=== PATIENT | male | born 1955 | race Caucasian/White ===

== ENCOUNTER 2021-11-18 07:52 | Inpatient (IN) ==
--- NOTE | 2021-11-15 12:26 | Anesthesiology Consultation ---
Date of Service November 15, 2021 Assessment & Plan (1) Encounter for pre-operative examination: - COVID screening: Per assessment on 11/15: No known COVID-19 positive contacts or current COVID-19 related symptoms. Travel screen negative. Patient vaccinate d. Surgeon arranging preop COVID testing. Awaiting results. - Check BSG AM DOS Chart Review Chart Review: Acceptable Risk for Surgery and Patient NOT seen in Pre Admission Testing History Surgery Operation Date: 11/18/21 09:35 Proposed Procedures p L3-L5 Decompression and Fusion Spinal Cord Monitoring - Emre Kaba DO Height/Weight Height: 5 ft 8 in Weight: 68.039 kg Allergies Allergy/AdvReac Type Severity Reaction Status Date / Time No Known Allergies Allergy Verified 11/15/21 09:22 Medications Home Medications Medication Instructions Recorded Confirmed Last Taken aspirin 81 mg capsule 81 mg PO HS 11/15/21 11/15/21 Unknown atorvastatin 40 mg tablet 40 mg PO HS 11/15/21 11/15/21 Unknown carbamazepine 100 mg 100 mg PO UD 11/15/21 11/15/21 Unknown tablet,extended release,12 hr (Tegretol XR) carbamazepine 200 mg 200 mg PO UD 11/15/21 11/15/21 Unknown tablet,extended release,12 hr (Tegretol XR) carbamazepine 400 mg 400 mg PO UD 11/15/21 11/15/21 Unknown tablet,extended release,12 hr (Tegretol XR) empagliflozin 10 mg tablet 10 mg PO QAM 11/15/21 11/15/21 Unknown (Jardiance) metformin 500 mg tablet 1,000 mg PO UD 11/15/21 11/15/21 Unknown multivitamin 1 tab PO QAM 11/15/21 11/15/21 Unknown phenobarbital 64.8 mg tablet 64.8 mg PO BID 11/15/21 11/15/21 Unknown phenytoin sodium extended 100 mg 100 mg PO UD 11/15/21 11/15/21 Unknown capsule (Dilantin Extended) semaglutide (Ozempic) 0.25 mg SUBCUT WK 11/15/21 11/15/21 Unknown tamsulosin 0.4 mg capsule 0.4 mg PO HS 11/15/21 11/15/21 Unknown Past Medical History Medical History Chronic back pain Degenerative disc disease Diabetes mellitus, type 2 NIDDM Hyperlipidemia OCD (obsessive compulsive disorder) Osteoarthritis Seizure last seizure over 25-30 years. 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 Follows with PCP currently. Past Family History Family History Other No family history of adverse response to anesthesia Past Surgical History Surgical History H/O arthroscopy of left knee H/O arthroscopy of right knee History of colonoscopy S/P epidural steroid injection Social History Smoking Status: Never smoker tobacco type: smokeless tobacco Do You Dip or Chew Tobacco: No (quit years ago) Hx Alcohol Use: No Hx Substance Use: No substance use type: does not use Testing Laboratory Results 09/27/21 WBC 5.39 H/H 15.0/44.5 PLATELETS 265 SODIUM 133 POTASSIUM 4.4 CHLORIDE 101 CO2 27.9 BUN 22.7 CREATININE 0.77 GLUCOSE 131 PT 11.2 PTT 31.2 INR 0.99 UA negative leuk est/nitrite Electrocardiogram Date: 09/27/21 Sinus rhythm at 79 bpm. Abnormal LAD. Chest X-Ray Date: 09/27/21 Findings: + NAD
[~2021-11-18 07:52] MED LIST: ACETAMINOPHEN 500 MG TAB PO SCH; CeleBREX 200 MG CAP PO SCH; GABAPENTIN 300 MG CAP PO SCH; LR 15ML/HR IV SCH; ceFAZolin 2000MG 2,000 MG/15 ML SYR IV SCH
[2021-11-18] MEDS ORDERED: LIDOCAINE 2% 2 ML VIAL/AMP(20MG/ML) INFIL ONE (08:16)
[2021-11-18] MEDS ORDERED: ROCURONIUM BROMIDE 10 MG/ML 5 ML VIAL IV ONE (08:16)
[2021-11-18] MEDS ORDERED: MIDAZOLAM HCL 1 MG/ML 2ML VIAL ONE (08:16)
[2021-11-18] MEDS ORDERED: NEOSTIGMINE METHYLSULFATE 1 MG/ML 10ML VIAL ONE (08:16)
[2021-11-18] MEDS ORDERED: ONDANSETRON INJ 2 MG/ML 2 ML VIAL ONE (08:16)
[2021-11-18] MEDS ORDERED: PROPOFOL IV EMULSION 10 MG/ML 20 ML VIAL IV ONE (08:16)
[2021-11-18] MEDS ORDERED: DEXAMETHASONE SOD INJ 4 MG/ML VIAL ONE (08:16)
[2021-11-18] MEDS ORDERED: GLYCOPYRROLATE 0.2 MG/ML VIAL ONE (08:16)
[2021-11-18] MEDS ORDERED: fentaNYL citrate 100 MCG/2 ML VIAL ONE (08:16)
--- NOTE | 2021-11-18 09:10 | History & Physical Bridge Note ---
Date of Service November 18, 2021 History & Physical Bridge Note I have examined the patient, reviewed the History & Physical and in the interval since the performance of the History & Physical I have noted the following changes of clinical significance: no changes noted
[2021-11-18] MEDS ORDERED: PROMETHAZINE HCL 12.5 MG in SODIUM CHLORIDE 0.9% 50 ML IV PRN ×2 (09:11→15:07)
[2021-11-18] MEDS ORDERED: HYDROmorphone INJ 1 MG/ML SYRINGE IV PRN (09:11)
[2021-11-18] MEDS ORDERED: ATROPINE SULFATE 0.1 MG/ML 10ML SYR IV PRN (09:11)
[2021-11-18] MEDS ORDERED: FLUMAZENIL 0.1 MG/1 ML 10 ML VIAL IV PRN (09:11)
[2021-11-18] MEDS ORDERED: ePHEDrine sulfate 50 MG/ML AMP IV PRN (09:11)
[2021-11-18] MEDS ORDERED: LABETALOL HCL IV 5 MG/ML 20ML IV PRN (09:11)
[2021-11-18] MEDS ORDERED: NALOXONE HCL 0.4 MG/1 ML VIAL/CARP IV PRN ×2 (09:11→15:07)
[2021-11-18] MEDS ORDERED: ONDANSETRON INJ 2 MG/ML 2 ML VIAL IV PRN ×2 (09:11→15:07)
--- NOTE | 2021-11-18 09:11 | History & Physical Report ---
Date of Service November 18, 2021 Assessment & Plan (1) Neurogenic claudication due to lumbar spinal stenosis: Plan: L3-L5 decompression and fusion History of Present Illness Chief Complaint: Back and bilateral leg pain Primary Care Provider: Jenny Snyder DO This is a 66-year-old male presents with marked decline in status with pain and weakness. After failing 6 course of nonoperative care is here for surgical intervention. Allergies Allergy/AdvReac Type Severity Reaction Status Date / Time No Known Allergies Allergy Verified 11/18/21 08:18 Home Medications Medication Instructions Recorded Confirmed Type aspirin 81 mg capsule 81 mg PO HS 11/15/21 11/18/21 History atorvastatin 40 mg tablet 40 mg PO HS 11/15/21 11/18/21 History carbamazepine 100 mg 100 mg PO UD 11/15/21 11/18/21 History tablet,extended release,12 hr (Tegretol XR) carbamazepine 200 mg 200 mg PO UD 11/15/21 11/18/21 History tablet,extended release,12 hr (Tegretol XR) carbamazepine 400 mg 400 mg PO UD 11/15/21 11/18/21 History tablet,extended release,12 hr (Tegretol XR) empagliflozin 10 mg tablet 10 mg PO QAM 11/15/21 11/18/21 History (Jardiance) metformin 500 mg tablet 1,000 mg PO UD 11/15/21 11/18/21 History multivitamin 1 tab PO QAM 11/15/21 11/18/21 History phenobarbital 64.8 mg tablet 64.8 mg PO BID 11/15/21 11/18/21 History phenytoin sodium extended 100 mg 100 mg PO UD 11/15/21 11/18/21 History capsule (Dilantin Extended) semaglutide (Ozempic) 0.25 mg SUBCUT WK 11/15/21 11/18/21 History tamsulosin 0.4 mg capsule 0.4 mg PO HS 11/15/21 11/18/21 History Past Med/Surg History Medical History Chronic back pain Degenerative disc disease Diabetes mellitus, type 2 NIDDM Hyperlipidemia OCD (obsessive compulsive disorder) Osteoarthritis Seizure last seizure over 25-30 years. 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 Follows with PCP currently. Surgical History H/O arthroscopy of left knee H/O arthroscopy of right knee History of colonoscopy S/P epidural steroid injection Family History Other No family history of adverse response to anesthesia Social History Smoking Status: Never smoker Second Hand Exposure: No; Do You Dip or Chew Tobacco: No (quit years ago); Tobacco Cessation Education Requested by Patient: No Hx Alcohol Use: No Hx Substance Use: No Preferred Language: Northern Irish Communication Ability: Effective Carton Catcher Required: No Beliefs That Will Affect Care: None Current Living Situation: Spouse Other Information That Helps Us Care for You: No Assistive Devices: Cane, Denture - Upper, Denture - Lower and Glasses Physical Exam Physical Exam: Patient is alert and oriented Heart regular rhythm Lungs clear Results & Data ([facility]) Vital Signs (Past 12 Hours) Vital Signs Temp Pulse Resp BP Pulse Ox 11/18/21 08:31 36.6 C 75 18 136/77 96
[2021-11-18] MEDS ORDERED: ceFAZolin 330 MG/ML 1 GM VIAL ONE (09:29)
[2021-11-18] MEDS ORDERED: BUPIVACAINE 0.5 % 5 MG/1 ML MPF 30ML VIAL ONE (09:32)
[2021-11-18] MEDS ORDERED: EPINEPHrine INJ 1 MG/ML AMP ONE (09:33)
[2021-11-18] MEDS ORDERED: FLOSEAL HEMOSTATIC MATRIX 10ML TOP ONE (10:24)
--- NOTE | 2021-11-18 11:51 | Operative Report ---
Post Operative Report Pre & Post Diagnosis Operation Date: 11/18/21 09:45 Pre-Op Diagnosis: Neurogenic claudication due to lumbar spinal stenosis, L3-L5 Post-Op Diagnosis: Neurogenic claudication due to lumbar spinal stenosis, L3-L5 I identified the patient and participated in the time-out.: Yes Procedure Operation Date: 11/18/21 09:45 Actual Procedures #1 lumbar decompression with bilateral medial facetectomies and foraminotomies L2-L3, L3-L4 and L4-5. #2 posterior spinal fusion L3-L4 L4-5. #3 placement posterior instrumentation L3-L5. #4 interbody fusion L3-L4 L4-L5. #5 placement of Spira 14 x 26 mm at L3-L4 and L4-5. #6 placement of locally harvested morselized autograft in the posterior gutters. #7 placement of I factor combined with V toss in the interbody space and posterior lateral gutters. Surgeon Emre Kaba, DO [employer]er Flor Sinclair Estimated Blood Loss 450 Findings Consistent with Post-Op Diagnosis Specimens None Indications This is a 66-year-old male that presents with above-mentioned diagnosis after failed course of nonoperative care is here for surgical invention. Description of Procedure Patient was met with identified informed consent obtained. Patient was then taken to the operative suite underwent a patient placed in a prone position the Clarence table top Nakul frame. All bony prominences well-padded eyes inspected to ensure no external pressure placed upon the. This point the lumbar spine was prepped and draped in the normal sterile fashion. Sharp dissection with the assistance of Bovie cautery was then performed down to and exposing the lamina and transverse processes of L3-L4-L5 bilaterally. From a caudal to cephalad fa shion complete laminectomy of all 4 L3 and partial laminectomy of L2 was performed including bilateral medial facetectomies foraminotomies addressing severe spinal stenosis. Pedicle screws were then placed in L3-L4-L5 bilaterally with assistance of fluoroscopy and the proper sized florina placed. By way of a transforaminal approach on the right complete discectomy of L4-L5 was performed endplates curetted to subcortical bleeding bone and a 14 x 26 mm spiral cage filled I factor tapped in position. Then proceeded to L3-L4 and again by way of a transforaminal portion right complete discectomy performed endplates graded to subcortically bone and again a 14 x 26 mm spiral cage filled I factor tapped in position. The rods were then compressed locked in final position bilaterally. The transverse processes of L3 L4-5 burred to subcortical bleeding bone. I factor combined with V toss and locally harvested morselized autograft was placed in the posterior gutters. 15 round LAUREN drain inserted. The incision was then closed with 1 Vicryl the fascia 2-0 Vicryl subcutaneously and 4 Monocryl for final skin closure. Steri-Strip sterile dressings placed. Patient waken taken PACU stable condition. Please note spinal cord monitoring was utilized at the procedure no changes noted. Lastly Flor Sinclair was present out the entire surgery and while the patient positioning complex portions of the surgery and fascial closure. I attest to the content of the Intraoperative Record and any orders documented therein. Any exceptions are noted below.
[2021-11-18] MEDS: fentaNYL citrate 100 MCG/2 ML VIAL IV PRN ×4 (12:15→12:30)
--- NOTE | 2021-11-18 12:38 | Fluoroscopy Report ---
FL lumbar spine 2-3V HISTORY: 66 years-old Male L3-L5 DECOMP/FUSION COMPARISON: None TECHNIQUE: 2 spot fluoroscopic images of the lumbar spine were obtained utilizing 30.4 seconds fluoro scopy time FINDINGS: Posterior interbody florina and screw fusion with discectomy at L3-L5. The hardware appears intact. No un expected opaque foreign bodies. Multilevel spondylitic spurring. Alignment appears satisfactory. IMPRESSION: Fluoroscopic assistance as above. ACT 112: Negative or not required by law. The above report was generated using voice recognition software. It may contain grammatical, syntax o r spelling errors. Electronically signed by: Navarro Arevalo M.D. 11/18/2021 12:36 PM
--- NOTE | 2021-11-18 12:56 | Anesthesiology Progress Note ---
Date of Service November 18, 2021 Anesthesia Post Procedure Vital Signs Vital Signs: Temp Pulse Resp BP Pulse Ox 11/18/21 12:40 36.2 C L 80 18 121/65 98 11/18/21 12:30 76 17 125/61 99 11/18/21 12:20 77 17 124/50 L 100 11/18/21 12:10 89 17 124/66 100 11/18/21 12:04 36.2 C L 85 18 138/67 96 11/18/21 08:31 36.6 C 75 18 136/77 96 Transfer of Care Handoff Completed per policy Notes Mental Status: alert / awake / arousable Patient Amnestic to Procedure: Yes Nausea / Vomiting: adequately controlled Pain: adequately controlled Airway Patency, RR, SpO2: stable & adequate BP & HR: stable & adequate Hydration State: stable & adequate Anesthetic Complications: no major complications apparent
[2021-11-18] MEDS ORDERED: oxyCODONE HCL IR 5 MG TAB (IMMEDIATE RELEASE) PO PRN (15:07)
[2021-11-18] MEDS ORDERED: ONDANSETRON 4 MG OD TAB PO PRN (15:07)
[2021-11-18] MEDS ORDERED: bisacodyL 10 MG SUPP PR PRN (15:07)
[2021-11-18] MEDS ORDERED: DO NOT ADMINISTER PNEUMOCOCCAL VACCINE PRN (15:07)
[2021-11-18] MEDS ORDERED: DO NOT ADMINISTER FLU VACCINE PRN (15:07)
[2021-11-18] MEDS ORDERED: LORazepam 0.5 MG TAB PO PRN (15:07)
[2021-11-18] MEDS ORDERED: PHARMACY GLYCEMIC MGMT CONSULT PRN (15:07)
[2021-11-18] MEDS ORDERED: hydrOXYzine HCl 25 MG TAB PO PRN (15:07)
[2021-11-18] MEDS ORDERED: ACETAMINOPHEN 1,000 MG/100 ML VIAL IV PRN (15:07)
[2021-11-18] MEDS ORDERED: SOD PHOSPHATE/SOD BIPHOSPHATE ENEMA 132 ML BTL PR PRN (15:07)
[2021-11-18] MEDS ORDERED: ALUMINUM/MAGNESIUM SUSP 30 ML UDC PO PRN (15:07)
[2021-11-18] MEDS ORDERED: FAMOTIDINE 20 MG TAB PO PRN (15:07)
[2021-11-18] MEDS ORDERED: MAGNESIUM HYDROXIDE SUSP 30 ML UDC PO PRN (15:07)
[2021-11-18] MEDS ORDERED: diphenhydrAMINE Capsule 25 MG CAP PO PRN (15:07)
[2021-11-18] MEDS ORDERED: LORazepam 2 MG/1 ML VIAL IV PRN (15:07)
[2021-11-18] MEDS ORDERED: PHENYTOIN SODIUM ER 100 MG CAP PO SCH ×2 (15:07→21:00)
[2021-11-18] MEDS ORDERED: METOCLOPRAMIDE HCL INJ 5 MG/ML 2 ML VIAL IV PRN (15:07)
[2021-11-18] MEDS ORDERED: NON-FORMULARY MEDICATION (Semaglutide [Ozempic] 0.25 mg or 0.5 mg(2 mg/1.5 mL) Pen Injecto SQ SCH (15:07)
[2021-11-18] MEDS ORDERED: HYDROmorphone INJ 0.5 MG/0.5 ML SYR IV PRN (15:07)
[2021-11-18] MEDS ORDERED: PHENYTOIN SODIUM ER 100 MG CAP PO STA (15:49)
--- NOTE | 2021-11-18 16:03 | Hospitalist Consultation ---
Date of Consultation November 18, 2021 Assessment & Plan (1) Neurogenic claudication due to lumbar spinal stenosis: POD#0 L3-L5 decompression and fusion by Dr. Kaba activity and wound care orders as per ortho pain control with bowel regimen PT/OT monitor H/H for acute blood loss anemia and transfuse blood products PRN EBL 450 cc (2) Diabetes mellitus, type 2: Unknown HgbA1c, check with a.m. labs Hold home diabetic meds and utilize Lantus and NovoLog per protocol while hospitalized Glycemic pharmacy consulted by primary team (3) Seizure: History of Continue home doses of carbamazepine, phenobarbital, Dilantin (4) DVT prophylaxis: TEDs/SCDs as per spine Ortho Thank you for this consultation. We will follow the patient with you during their hospital stay. You can reach a member of the [facility]02 via the [facility] role in [place] Text. Supervising Physician Co-Signing Physician Notes Patient is a 66-year-old male with history of diabetes mellitus, hypertension, seizure disorder was consulted for postop medical management. Patient underwent lumbar surgery for lumbar spinal stenosis L3-L5 with neurogenic claudication. Patient complains of some pain at surgical site but otherwise feels well postoperatively. He denies any chest pain, shortness of breath, dizziness, nausea, abdominal pain. Physical Exam: Vitals signs as noted above General Appearance:Moderately built and nourished, no apparent distress Head: normocephalic, Atraumatic Eyes: normal inspection, EOMI Neck: supple, Trachea midline Respiratory/Chest: Normal breath sounds, CTA, No accessory muscle use Cardiovascular: S1, S2, No murmur Abdomen/GI:Soft, Non tender, Bowel sounds present Back: Surgical site in dressing Extremities/Musculoskeletal:normal inspection, no edema Neurologic/Psych:AAOX3, grossly no focal neurological deficits Skin: normal color, warm Neurogenic claudication due to lumbar spinal stenosis S/P lumbar surgery by Dr. Kaba POD #0 Pain control, activity, wound care as per primary team Monitor for post OP anemia Bowel regimen to prevent constipation DVT Px as per Primary team Expect leukocytosis in setting of steroid use I personally reviewed the record. Patient is interviewed and examined at bedside. Patient's care is coordinated with Nadya Houston ASSISTANT PROFESSOR OF ENGLISH. Please refer to the documentation above for details of patient's presentation and for discussion of other issues. History of Present Illness Reason for Consultation: Postop medical management Requesting Physician: Dr. Kaba Attending Physician: Emre Kaba, DO History of Present Illness 66-year-old male with PMH seizure disorder, DM type II, HLD, and other problems to below who is s/p L3-L5 decompression and fusion today by Dr. Kaba. Postoperatively, the patient is doing well. He reports his pain is well controlled. Denies any numbness, tingling, weakness to lower extremities. No chest pain or shortness of breath. Denies abdominal pain or nausea. No lightheadedness or dizziness. Allergies Allergy/AdvReac Type Severity Reaction Status Date / Time No Known Allergies Allergy Verified 11/18/21 08:18 Home Medications Medication Instructions Recorded Confirmed Type aspirin 81 mg capsule 81 mg PO HS 11/15/21 11/18/21 History atorvastatin 40 mg tablet 40 mg PO HS 11/15/21 11/18/21 History carbamazepine 100 mg 100 mg PO UD 11/15/21 11/18/21 History tablet,extended release,12 hr (Tegretol XR) carbamazepine 200 mg 200 mg PO UD 11/15/21 11/18/21 History tablet,extended release,12 hr (Tegretol XR) carbamazepine 400 mg 400 mg PO UD 11/15/21 11/18/21 History tablet,extended release,12 hr (Tegretol XR) empagliflozin 10 mg tablet 10 mg PO QAM 11/15/21 11/18/21 History (Jardiance) metformin 500 mg tablet 1,000 mg PO UD 11/15/21 11/18/21 History multivitamin 1 tab PO QAM 11/15/21 11/18/21 History phenobarbital 64.8 mg tablet 64.8 mg PO BID 11/15/21 11/18/21 History phenytoin sodium extended 100 mg 100 mg PO UD 11/15/21 11/18/21 History capsule (Dilantin Extended) semaglutide (Ozempic) 0.25 mg SUBCUT WK 11/15/21 11/18/21 History tamsulosin 0.4 mg capsule 0.4 mg PO HS 11/15/21 11/18/21 History Patient History Medical History Chronic back pain Degenerative disc disease Diabetes mellitus, type 2 NIDDM Hyperlipidemia OCD (obsessive compulsive disorder) Osteoarthritis Seizure last seizure over 25-30 years. 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 Follows with PCP currently. Surgical History H/O arthroscopy of left knee H/O arthroscopy of right knee History of colonoscopy S/P epidural steroid injection Family History Other No family history of adverse response to anesthesia Social History Smoking Status: Never smoker Second Hand Exposure: No; Do You Dip or Chew Tobacco: No (quit years ago); Tobacco Cessation Education Requested by Patient: No Hx Alcohol Use: No Hx Substance Use: No Preferred Language: Uzbek Communication Ability: Effective Tube Skiver Required: No Beliefs That Will Affect Care: None Current Living Situation: Spouse Other Information That Helps Us Care for You: No Assistive Devices: Cane, Denture - Upper, Denture - Lower and Glasses Review of Systems Review of Systems: ROS per HPI, all other systems reviewed and negative Physical Exam Physical Exam: please refer to Dr. Arellano's addendum for physical exam Results & Data Results & Data ([facility]) Vital Signs (Past 12 Hours) Vital Signs Temp Pulse Resp BP Pulse Ox 11/18/21 15:25 36.6 C 93 H 16 135/79 97 11/18/21 14:55 36.9 C 81 16 132/70 97 11/18/21 14:30 82 16 106/50 L 95 11/18/21 14:10 81 16 119/58 L 96 11/18/21 13:55 88 16 121/56 L 96 11/18/21 13:40 79 16 112/49 L 94 11/18/21 13:25 77 16 105/52 L 96 11/18/21 13:10 77 16 118/52 L 96 11/18/21 13:00 72 16 118/54 L 95 11/18/21 12:50 72 18 125/55 L 95 11/18/21 12:40 36.2 C L 80 18 121/65 98 11/18/21 12:30 76 17 125/61 99 11/18/21 12:20 77 17 124/50 L 100 11/18/21 12:10 89 17 124/66 100 11/18/21 12:04 36.2 C L 85 18 138/67 96 11/18/21 08:31 36.6 C 75 18 136/77 96
[2021-11-18] MEDS ORDERED: CARBOHYDRATES FOR HYPOGLYCEMIA PO PRN (16:15)
[2021-11-18] MEDS ORDERED: GLUCOSE 10 TABS/TUBE PO PRN (16:15)
[2021-11-18] MEDS ORDERED: GLUCOSE 40% GEL 15 GM TUBE PO PRN (16:15)
[2021-11-18] MEDS ORDERED: DEXTROSE 50% 50 ML SYRINGE IV PRN (16:15)
[2021-11-18] MEDS ORDERED: GLUCAGON FOR INJ 1 MG VIAL IM PRN (16:15)
[2021-11-18] MEDS: CARBAMAZEPINE 400 MG PO SCH ×2 (16:37→20:54)
[2021-11-18] MEDS: PHENYTOIN SODIUM ER 100 MG CAP PO SCH ×2 (16:37→20:57)
[2021-11-18] MEDS: SODIUM CHLORIDE 0.9% 1000ML 1,000 ML IV SCH ×2 (17:26→23:49)
[2021-11-18] MEDS: traMADol HCL 50 MG TABLET PO PRN ×2 (17:42→22:23)
[2021-11-18] MEDS: INSULIN ASPART PER UNIT SC SCH ×2 (18:29→21:01)
--- NOTE | 2021-11-18 19:18 | Pharmacy Report ---
Pharmacy Glycemic Short Note 2 - Date of Service November 18, 2021 - Glycemic Short BSG Results (Last 24 hours): 11/18/21 11/18/21 11/18/21 08:39 12:09 17:13 POC Glucose 122 H 130 H 113 H OUTPATIENT ANTIDIABETIC REGIMEN: * Jardiance 10 mg PO daily * Ozempic 0.25 mg SC weekly on Monday * Metformin 1000 mg PO BIDM * HbA1c: ordered for 11/19/21 ASSESSMENT: * APOORVA is a 66 year old male POD #0 s/p L3-5 decompression /fusion * Received 4 mg IV dexamethasone intraoperatively * Ordered dexamethasone 6 mg IV daily starting tomorrow AM * BSGs well-controlled today, 122, 130, and 113 mg/dL * Will defer basal/NPH insulin at this time and use tight Novolog parameters only for now * Patient with T2DM, managed with orals/GLP-1 RA at home, HbA1c is pending for tomorrow morning PLAN FOR INPATIENT GLYCEMIC CONTROL: * Hold outpatient oral diabetes medications * Basal insulin * Hold for now * Bolus insulin * NovoLog per scale ACHS or Q6hrs while NPO * Goal Range: Low 110 mg/dL - High 140 mg/dL * Correction Factor: 15 mg/dL/unit * Nutritional / Prandial insulin per carb ratio of 1 unit per 6 grams CHO consumed
[2021-11-18] MEDS: ASPIRIN 81 MG ECTAB PO SCH (20:51)
[2021-11-18] MEDS: ATORVASTATIN 40 MG TAB PO SCH (20:52)
[2021-11-18] MEDS: DOCUSATE SODIUM/SENNA 50/8.6MG TAB PO SCH (20:53)
[2021-11-18] MEDS: PHENOBARBITAL PO SCH (20:55)
[2021-11-18] MEDS: TAMSULOSIN HCL 0.4 MG CAP PO SCH (20:58)
[2021-11-18] MEDS ORDERED: PHENobarbitaL 30 MG TAB PO SCH (21:00)
[2021-11-18] MEDS: ceFAZolin 2000MG 2,000 MG/15 ML SYR IV SCH (22:24)
[2021-11-18] MEDS: HYDROmorphone INJ 1 MG/ML SYRINGE IV PRN (23:55)
[2021-11-19] MEDS: HYDROmorphone INJ 1 MG/ML SYRINGE IV PRN (05:00)
[2021-11-19] MEDS: SODIUM CHLORIDE 0.9% 1000ML 1,000 ML IV SCH (06:10)
[2021-11-19] MEDS: POLYETHYLENE (MIRALAX) 17 GM PACK PO SCH ×4 (06:15→23:16)
[2021-11-19] MEDS: ceFAZolin 2000MG 2,000 MG/15 ML SYR IV SCH (06:19)
[2021-11-19] MEDS: INSULIN ASPART PER UNIT SC SCH ×4 (08:33→21:29)
[2021-11-19] MEDS: MULTIVITAMIN TAB PO SCH (08:33)
[2021-11-19] MEDS: PHENYTOIN SODIUM ER 100 MG CAP PO SCH ×3 (08:34→21:31)
[2021-11-19] MEDS: dexAMETHasone 6 MG in SYRINGE 0 ML IV SCH (08:35)
[2021-11-19] MEDS: traMADol HCL 50 MG TABLET PO PRN ×4 (08:36→23:59)
[2021-11-19] MEDS: PHENOBARBITAL PO SCH ×2 (08:39→21:41)
[2021-11-19 08:44] LABS: Basophils # (auto) 0.02 K/uL (0-0.2); Basophils % (auto) 0.2 %; Eosinophils # (auto) 0.04 K/uL (0-0.5); Eosinophils % (auto) 0.3 %; Hematocrit (blood only) 36.4 % (42-52); Hemoglobin 12.6 g/dL (14.0-18.0); Immature Granulocytes # (auto) 0.04 K/uL (0.00-0.02); Immature Granulocytes % (auto) 0.3 %; Lymphocytes # (auto) 1.23 K/uL (1.2-3.4); Mean Corpuscular Hemoglobin 31.9 pg (25-34); Mean Corpuscular Hgb Conc 34.6 g/dL (32-36); Mean Corpuscular Volume 92.2 fL (80-100); Mean Platelet Volume 9.2 fL (7.4-10.4); Monocytes # (auto) 1.25 K/uL (0.11-0.59); Monocytes % (auto) 10.2 %; Neutrophils # (auto) 9.66 K/uL (1.4-6.5); Platelet Count 239 K/uL (130-400); RDW Standard Deviation 44.1 fL (36.4-46.3); Red Blood Count 3.95 M/uL (4.7-6.1); White Blood Count 12.24 K/uL (4.8-10.8)
--- NOTE | 2021-11-19 08:53 | Hospitalist Progress Note ---
Date of Service November 19, 2021 Assessment & Plan (1) Neurogenic claudication due to lumbar spinal stenosis: Plan: POD#1 L3-L5 decompression and fusion by Dr. Kaba activity and wound care orders as per ortho pain control with bowel regimen PT/OT monitor H/H for acute blood loss anemia and transfuse blood products PRN Post-op pt is doing well, RLE numbness mostly resolved Pt has been ambulating w/ PT (2) Diabetes mellitus, type 2: Plan: Current HgbA1c 5.6% Hold home diabetic meds and utilize Lantus and NovoLog per protocol while hospitalized Glycemic pharmacy consulted by primary team (3) Seizure: Plan: History of Continue home doses of carbamazepine, phenobarbital, Dilantin (4) DVT prophylaxis: Plan: TEDs/SCDs as per spine Ortho Thank you for this consultation. We will follow the patient with you during their hospital stay. You can reach a member of the [facility] Hospitalist Team 27/02 via the [facility] role in [employer] [facility]. Admission and Anticipated Discharge Date Admission Date: November 18, 2021 Subjective Patient seen in follow-up of spinal surgery Currently patient is lying in bed, in no acute distress Reports some pain in the surgical site However he says that numbness he had in the right lower extremity, is mostly all resolved He was working with PT earlier today Denies any fevers, chills, chest pain, shortness of breath, abdominal pain Has been urinating, but no BM yet Review of Systems Review of Systems: All systems reviewed & are unremarkable except as noted in Subjective Physical Exam Physical Exam: General : Moderately built and nourished, no apparent distress Head: normocephalic, Atraumatic Eyes: normal inspection, EOMI Neck: supple, Trachea midline Respiratory/Chest: Normal breath sounds, CTA, No accessory muscle use Cardiovascular: S1, S2, No murmur Abdomen/GI:Soft, Non tender, Bowel sounds present Back: Surgical dressings applied Extremities/Musculoskeletal:normal inspection, no edema Neurologic/Psych:AAOX3, grossly no focal neurological deficits Skin: normal color, warm Results & Data Results & Data ([facility]) Vital Signs (Past 12 Hours) Vital Signs Temp Pulse Resp BP Pulse Ox 11/19/21 08:32 37.3 C 85 16 120/74 97 11/19/21 06:07 37.1 C 86 18 100/63 94 11/19/21 02:07 36.9 C 80 16 113/68 98 11/18/21 22:22 37.5 C 85 18 114/69 95 Laboratory Results 11/19/21 11/19/21 11/19/21 Range/Units 08:32 08:32 08:32 WBC 12.24 H (4.8-10.8) K/uL RBC 3.95 L (4.7-6.1) M/uL Hgb 12.6 L (14.0-18.0) g/dL Hct 36.4 L (42-52) % MCV 92.2 (80-100) fL MCH 31.9 (25-34) pg MCHC 34.6 (32-36) g/dL RDW Std Deviation 44.1 (36.4-46.3) fL RDW Coeff of Anneliese 13.0 (11.5-14.5) % Plt Count 239 (130-400) K/uL MPV 9.2 (7.4-10.4) fL Immature Gran % (Auto) 0.3 % Neut % (Auto) 79.0 % Lymph % (Auto) 10.0 % [place] % (Auto) 10.2 % Eos % (Auto) 0.3 % Baso % (Auto) 0.2 % Neut # (Auto) 9.66 H (1.4-6.5) K/uL Lymph # (Auto) 1.23 (1.2-3.4) K/uL [place] # (Auto) 1.25 H (0.11-0.59) K/uL Eos # (Auto) 0.04 (0-0.5) K/uL Baso # (Auto) 0.02 (0-0.2) K/uL Immature Gran # (Auto) 0.04 H (0.00-0.02) K/uL Sodium Pending Potassium Pending Chloride Pending Carbon Dioxide Pending Anion Gap Pending BUN Pending Creatinine Pending Est Cr Clr Drug Dosing Pending Est GFR ( Amer) Pending Est GFR (Non-Af Amer) Pending BUN/Creatinine Ratio Pending Glucose Pending POC Glucose (70-99) mg/dl Estimat Average Glucose Pending Hemoglobin A1c Pending Calcium Pending Blood Type Antibody Screen 11/19/21 11/19/21 11/18/21 Range/Units 08:08 08:06 20:43 WBC (4.8-10.8) K/uL RBC (4.7-6.1) M/uL Hgb (14.0-18.0) g/dL Hct (42-52) % MCV (80-100) fL MCH (25-34) pg MCHC (32-36) g/dL RDW Std Deviation (36.4-46.3) fL RDW Coeff of Anneliese (11.5-14.5) % Plt Count (130-400) K/uL MPV (7.4-10.4) fL Immature Gran % (Auto) % Neut % (Auto) % Lymph % (Auto) % [place] % (Auto) % Eos % (Auto) % Baso % (Auto) % Neut # (Auto) (1.4-6.5) K/uL Lymph # (Auto) (1.2-3.4) K/uL [place] # (Auto) (0.11-0.59) K/uL Eos # (Auto) (0-0.5) K/uL Baso # (Auto) (0-0.2) K/uL Immature Gran # (Auto) (0.00-0.02) K/uL Sodium Potassium Chloride Carbon Dioxide Anion Gap BUN Creatinine Est Cr Clr Drug Dosing Est GFR ( Amer) Est GFR (Non-Af Amer) BUN/Creatinine Ratio Glucose POC Glucose 168 H 185 H 119 H (70-99) mg/dl Estimat Average Glucose Hemoglobin A1c Calcium Blood Type Antibody Screen 11/18/21 11/18/21 11/18/21 Range/Units 17:13 12:09 08:13 WBC (4.8-10.8) K/uL RBC (4.7-6.1) M/uL Hgb (14.0-18.0) g/dL Hct (42-52) % MCV (80-100) fL MCH (25-34) pg MCHC (32-36) g/dL RDW Std Deviation (36.4-46.3) fL RDW Coeff of Anneliese (11.5-14.5) % Plt Count (130-400) K/uL MPV (7.4-10.4) fL Immature Gran % (Auto) % Neut % (Auto) % Lymph % (Auto) % [place] % (Auto) % Eos % (Auto) % Baso % (Auto) % Neut # (Auto) (1.4-6.5) K/uL Lymph # (Auto) (1.2-3.4) K/uL [place] # (Auto) (0.11-0.59) K/uL Eos # (Auto) (0-0.5) K/uL Baso # (Auto) (0-0.2) K/uL Immature Gran # (Auto) (0.00-0.02) K/uL Sodium Potassium Chloride Carbon Dioxide Anion Gap BUN Creatinine Est Cr Clr Drug Dosing Est GFR ( Amer) Est GFR (Non-Af Amer) BUN/Creatinine Ratio Glucose POC Glucose 113 H 130 H (70-99) mg/dl Estimat Average Glucose Hemoglobin A1c Calcium Blood Type AB Negative Antibody Screen NEGATIVE Medications Administered Current Inpatient Medications Acetaminophen (Acetaminophen 500 Mg Tab) 1,000 mg PO Q8H PRN PRN Reason: MILD Pain Scale 1,2,3 & Pre PT Stop: 12/18/21 15:06 Al Hydrox/Mg Hydrox/Simethicone (Aluminum/Magnesium Susp 30 Ml Udc) 30 ml PO Q6H PRN PRN Reason: Dyspepsia Stop: 12/18/21 15:06 Aspirin (Aspirin 81 Mg Ectab) 81 mg PO HS NORI Stop: 12/18/21 20:59 Last Admin: 11/18/21 20:51 Dose: 81 mg Documented by: Atorvastatin Calcium (Atorvastatin 40 Mg Tab) 40 mg PO HS NORI Stop: 12/18/21 20:59 Last Admin: 11/18/21 20:52 Dose: 40 mg Documented by: Bisacodyl (Bisacodyl 10 Mg Supp) 10 mg SC DAILY PRN PRN Reason: Constipation Stop: 12/18/21 15:06 Carbamazepine (Carbamazepine 100 Mg Tabcr) 100 mg PO BID NORI Stop: 12/18/21 20:59 Last Admin: 11/19/21 08:35 Dose: 100 mg Documented by: Carbamazepine (Carbamazepine 200 Mg Tabcr) 200 mg PO BID NORI Stop: 12/18/21 20:59 Last Admin: 11/19/21 08:35 Dose: 200 mg Documented by: Dextrose (Dextrose 50% 50 Ml Syringe) 25 - 50 ml IV UD PRN; Protocol PRN Reason: Hypoglycemia Protocol Stop: 12/18/21 16:14 Diphenhydramine HCl (Diphenhydramine Capsule 25 Mg Cap) 25 mg PO Q6H PRN PRN Reason: Allergic Rhinitis/Insomnia Stop: 12/18/21 15:06 Famotidine (Famotidine 20 Mg Tab) 20 mg PO Q12H PRN PRN Reason: Dyspepsia Stop: 12/18/21 15:06 Glucagon (Glucagon For Inj 1 Mg Vial) 1 mg IM UD PRN; Protocol PRN Reason: Hypoglycemia Protocol Stop: 12/18/21 16:14 Glucose (Glucose 40% Gel 15 Gm Tube) 15 - 30 gm PO UD PRN; Protocol PRN Reason: Hypoglycemia Protocol Stop: 12/18/21 16:14 Glucose (Glucose 10 Tabs/Tube) 4 - 8 tabs PO UD PRN; Protocol PRN Reason: Hypoglycemia Protocol Stop: 12/18/21 16:14 Hydromorphone HCl (Hydromorphone Inj 0.5 Mg/0.5 Ml Syr) 0.5 mg IV Q3H PRN PRN Reason: MODERATE Pain (Scale 4,5,6) & Pre PT Stop: 12/02/21 15:06 Hydromorphone HCl (Hydromorphone Inj 1 Mg/Ml Syringe) 1 mg IV Q3H PRN PRN Reason: SEVERE Pain (Scale 7,8,9,10) Stop: 12/02/21 15:06 Last Admin: 11/19/21 05:00 Dose: 1 mg Documented by: Hydroxyzine HCl (Hydroxyzine Hcl 25 Mg Tab) 25 mg PO Q8H PRN PRN Reason: Anxiety Stop: 12/18/21 15:06 Promethazine HCl 12.5 mg/ (Sodium Chloride) 50.5 mls @ 202 mls/hr IV Q6H PRN PRN Reason: Nausea &/or Vomiting Stop: 12/18/21 15:06 Acetaminophen (Ofirmev) 1,000 mg in 100 mls @ 400 mls/hr IV Q8H PRN PRN Reason: Pain Rating 1-3 & Pre PT Stop: 11/21/21 15:06 Dexamethasone 6 mg/ Syringe 1.5 mls @ 1 mls/min IV DAILY NORI Stop: 11/21/21 09:02 Last Admin: 11/19/21 08:35 Dose: 1 mls/min Documented by: Influenza Virus Vaccine Quadrival (Do Not Administer Flu Vaccine) 1 ea N/A PRN PRN PRN Reason: Notification Stop: 12/18/21 15:06 Insulin Aspart (Insulin Aspart Per Unit) 0 units SC ACHS [facility] Stop: 12/18/21 16:29 Last Admin: 11/19/21 08:33 Dose: 7 units Documented by: Insulin Human NPH (Novolin-N (Nph) Per Unit Charge) 22 units SQ ONE ONE Stop: 11/19/21 09:01 Lorazepam (Lorazepam 0.5 Mg Tab) 0.5 mg PO Q8H PRN PRN Reason: Sedation/Anxiety Stop: 12/18/21 15:06 Lorazepam (Lorazepam 2 Mg/1 Ml Vial) 0.5 mg IV Q8H PRN PRN Reason: Sedation/Anxiety Stop: 12/18/21 15:06 Magnesium Hydroxide (Magnesium Hydroxide Susp 30 Ml Udc) 30 ml PO Q24H PRN PRN Reason: Constipation Stop: 12/18/21 15:06 Metoclopramide HCl (Metoclopramide Hcl Inj 5 Mg/Ml 2 Ml Vial) 10 mg IV Q6H PRN PRN Reason: Nausea &/or Vomiting Stop: 12/18/21 15:06 Miscellaneous (Carbohydrates For Hypoglycemia ) 15 - 30 gm PO UD PRN PRN Reason: Hypoglycemia Treatment Stop: 12/18/21 16:14 Miscellaneous Information (Pharmacy Glycemic Mgmt Consult) 1 ea N/A UD PRN PRN Reason: Consult Stop: 12/18/21 15:06 Multivitamins (Multivitamin Tab) 1 tab PO QAM [facility] Stop: 12/19/21 08:59 Last Admin: 11/19/21 08:33 Dose: 1 tab Documented by: Naloxone HCl (Naloxone Hcl 0.4 Mg/1 Ml Vial/Carp) 0.1 mg IV Q5M PRN PRN Reason: Oversedation/Resp depression Stop: 12/18/21 15:06 Carbamazepine 400 Mg Xr - Non-Formulary Patient's Own Med 1 ea PO BID@1130,2100 [facility] Stop: 12/18/21 16:29 Last Admin: 11/18/21 20:54 Dose: 1 ea Documented by: Phenobarbital - Non- Formulary Patient's Own Med 1 ea PO BID [facility] Stop: 12/18/21 20:59 Last Admin: 11/19/21 08:39 Dose: 64.8 mg Documented by: Ondansetron HCl (Ondansetron Inj 2 Mg/Ml 2 Ml Vial) 4 mg IV Q6H PRN PRN Reason: Nausea &/or Vomiting Stop: 12/18/21 15:06 Ondansetron HCl (Ondansetron 4 Mg Od Tab) 4 mg PO Q6H PRN PRN Reason: Nausea Stop: 12/18/21 15:06 Oxycodone HCl (Oxycodone Hcl Ir 5 Mg Tab (Immediate Release)) 5 - 10 mg PO Q4H PRN PRN Reason: Pain & Pre PT Stop: 12/02/21 15:06 Phenytoin Sodium (Phenytoin Sodium Er 100 Mg Cap) 100 mg PO BID@0900,1130 [facility] Stop: 12/18/21 15:06 Last Admin: 11/19/21 08:34 Dose: 100 mg Documented by: Phenytoin Sodium (Phenytoin Sodium Er 100 Mg Cap) 200 mg PO [facility] Stop: 12/18/21 20:59 Last Admin: 11/18/21 20:57 Dose: 200 mg Documented by: Pneumococcal Polyvalent Vaccine (Do Not Administer Pneumococcal Vaccine) 1 ea N/A PRN PRN PRN Reason: Notification Stop: 12/18/21 15:06 Polyethylene Glycol (Polyethylene (Miralax) 17 Gm Pack) 17 gm PO Q6 NORI Stop: 12/19/21 05:59 Last Admin: 11/19/21 06:15 Dose: 17 gm Documented by: Senna/Docusate Sodium (Docusate Sodium/Senna 50/8.6mg Tab) 2 tab PO [facility] Stop: 12/18/21 20:59 Last Admin: 11/18/21 20:53 Dose: 2 tab Documented by: Sodium Biphosphate/Sodium Phosphate (Sod Phosphate/Sod Biphosphate Enema 132 Ml Btl) 132 ml SC ONE PRN PRN Reason: Constipation Stop: 12/18/21 15:06 Tamsulosin HCl (Tamsulosin Hcl 0.4 Mg Cap) 0.4 mg PO [facility] Stop: 12/18/21 20:59 Last Admin: 11/18/21 20:58 Dose: 0.4 mg Documented by: Tramadol HCl (Tramadol Hcl 50 Mg Tablet) 50 - 100 mg PO Q4H PRN PRN Reason: Moderate-Severe pain & Pre PT Stop: 12/18/21 15:06 Last Admin: 11/19/21 08:36 Dose: 100 mg Documented by:
[2021-11-19] MEDS ORDERED: NON-FORMULARY MEDICATION (Empagliflozin [Jardiance] 10 mg Tablet) PO SCH (09:00)
[2021-11-19] MEDS ORDERED: NovoLIN-N (NPH) PER UNIT CHARGE SQ ONE (09:00)
--- NOTE | 2021-11-19 09:15 | Orthopedic Progress Note ---
Date of Service November 19, 2021 Assessment & Plan (1) Neurogenic claudication due to lumbar spinal stenosis: Plan: We will initiate physical therapy today monitor his LAUREN output hopefully discharge home this weekend. Admission and Anticipated Discharge Date Admission Date: November 18, 2021 Subjective Patient's back pain is controlled. Denies any leg pain. Physical Exam Physical Exam: Patient is in the chair at the bedside. Is good strength testing. Appears comfortable. Results & Data ([facility]) Vital Signs (Past 12 Hours) Vital Signs Temp Pulse Resp BP Pulse Ox 11/19/21 08:32 37.3 C 85 16 120/74 97 11/19/21 06:07 37.1 C 86 18 100/63 94 11/19/21 02:07 36.9 C 80 16 113/68 98 11/18/21 22:22 37.5 C 85 18 114/69 95
[2021-11-19 09:21] LABS: BUN Creatinine Ratio 13.6 (10-20); Calcium 8.2 mg/dl (8.5-10.1); Creatinine Clr Calc Pharmacy 121.5 ml/min; Est GFR (African American) 116.8 ml/min; Est GFR (Non-African American) 100.7 ml/min; Potassium 4.1 mmol/L (3.5-5.1)
[2021-11-19 10:39] LABS: Estimated Average Glucose 114 mg/dl; Hemoglobin A1C 5.6 % (4.5-5.6)
[2021-11-19] MEDS: CARBAMAZEPINE 400 MG PO SCH ×2 (12:39→21:28)
--- NOTE | 2021-11-19 14:18 | Pharmacy Report ---
Pharmacy Glycemic Short Note 2 - Date of Service November 19, 2021 - Glycemic Short BSG Results (Last 24 hours): 11/18/21 11/18/21 11/19/21 17:13 20:43 08:06 Glucose POC Glucose 113 H 119 H 185 H 11/19/21 11/19/21 11/19/21 08:08 08:32 11:46 Glucose 169 H POC Glucose 168 H 128 H OUTPATIENT ANTIDIABETIC REGIMEN: * Jardiance 10 mg PO daily * Ozempic 0.25 mg SC weekly on Monday * Metformin 1000 mg PO BIDM * HbA1c: ordered for 11/19/21 ASSESSMENT: 11/19/21: * Kaden received only 7 units of Novolog yesterday with excellent BSG control: 122, 130, 113, 119 mg/dL * Fasting BSG is elevated, 168 mg/dL. Patient is ordered dexamethasone 6 mg IV daily. Will start once daily NPH - conservative starting dose per patient received dexamethasone 4 mg IV nani-op yesterday without evidence of steroid induced hyperglycemia. * Will loosen novolog CF and CR with NPH on board. Background: * APOORVA is a 66 year old male POD #0 s/p L3-5 decompression /fusion * Received 4 mg IV dexamethasone intraoperatively * Ordered dexamethasone 6 mg IV daily starting tomorrow AM * BSGs well-controlled today, 122, 130, and 113 mg/dL * Will defer basal/NPH insulin at this time and use tight Novolog parameters only for now * Patient with T2DM, managed with orals/GLP-1 RA at home, HbA1c is pending for tomorrow morning PLAN FOR INPATIENT GLYCEMIC CONTROL: * Hold outpatient oral diabetes medications * Basal insulin * NPH 22 units SQ qAM x 1 - to be given with DXM * Bolus insulin * NovoLog per scale ACHS or Q6hrs while NPO * Goal Range: Low 110 mg/dL - High 140 mg/dL * Correction Factor: 20 mg/dL/unit * Nutritional / Prandial insulin per carb ratio of 1 unit per 8 grams CHO consumed
[2021-11-19] MEDS: ACETAMINOPHEN 500 MG TAB PO PRN (16:05)
[2021-11-19] MEDS: DOCUSATE SODIUM/SENNA 50/8.6MG TAB PO SCH (21:28)
[2021-11-19] MEDS: ATORVASTATIN 40 MG TAB PO SCH (21:28)
[2021-11-19] MEDS: ASPIRIN 81 MG ECTAB PO SCH (21:28)
[2021-11-19] MEDS: TAMSULOSIN HCL 0.4 MG CAP PO SCH (21:32)
[2021-11-20] MEDS: POLYETHYLENE (MIRALAX) 17 GM PACK PO SCH ×2 (05:45→12:38)
[2021-11-20 07:58] LABS: Hematocrit (blood only) 32.6 % (42-52); Hemoglobin 11.4 g/dL (14.0-18.0); Mean Corpuscular Hemoglobin 32.1 pg (25-34); Mean Corpuscular Volume 91.8 fL (80-100); Mean Platelet Volume 9.4 fL (7.4-10.4); Platelet Count 221 K/uL (130-400); RDW Coefficient of Variation 12.8 % (11.5-14.5); RDW Standard Deviation 42.9 fL (36.4-46.3); Red Blood Count 3.55 M/uL (4.7-6.1); White Blood Count 12.58 K/uL (4.8-10.8)
[2021-11-20 08:18] LABS: BUN Creatinine Ratio 14.5 (10-20); Calcium 8.7 mg/dl (8.5-10.1); Creatinine Clr Calc Pharmacy 129.4 ml/min; Est GFR (African American) 119.8 ml/min; Est GFR (Non-African American) 103.4 ml/min; Potassium 4.2 mmol/L (3.5-5.1)
[2021-11-20] MEDS ORDERED: NovoLIN-N (NPH) PER UNIT CHARGE SQ ONE (09:00)
[2021-11-20] MEDS: INSULIN ASPART PER UNIT SC SCH ×2 (09:03→13:07)
[2021-11-20] MEDS: traMADol HCL 50 MG TABLET PO PRN ×2 (09:04→13:08)
[2021-11-20] MEDS: PHENYTOIN SODIUM ER 100 MG CAP PO SCH ×2 (09:05→12:38)
[2021-11-20] MEDS: MULTIVITAMIN TAB PO SCH (09:06)
[2021-11-20] MEDS: dexAMETHasone 6 MG in SYRINGE 0 ML IV SCH (09:06)
[2021-11-20] MEDS: PHENOBARBITAL PO SCH (09:10)
--- NOTE | 2021-11-20 10:36 | Hospitalist Progress Note ---
Date of Service November 20, 2021 Assessment & Plan (1) Neurogenic claudication due to lumbar spinal stenosis: Plan: POD#2 L3-L5 decompression and fusion by Dr. Kaba activity and wound care orders as per ortho pain control with bowel regimen PT/OT monitor H/H for acute blood loss anemia and transfuse blood products PRN Post-op pt is doing well, RLE numbness mostly resolved Pt has been ambulating w/ PT 4/ Spiked fever 38.3C yesterday. current temp 37.7C Discusses spike in temp. w/ primary service. This seems to be post-surg. not concerning. will cancel ua, cxr, blood cultx Clinically pt is feeling well, likely DC later today per primary service. (2) Diabetes mellitus, type 2: Plan: Current HgbA1c 5.6% Hold home diabetic meds and utilize Lantus and NovoLog per protocol while hospitalized Glycemic pharmacy consulted by primary team (3) Seizure: Plan: History of Continue home doses of carbamazepine, phenobarbital, Dilantin (4) DVT prophylaxis: Plan: TEDs/SCDs as per spine Ortho Thank you for this consultation. We will follow the patient with you during their hospital stay. You can reach a member of the [facility] Hospitalist Team 27/02 via the [facility] Hospitalist role in [place] Text. Admission and Anticipated Discharge Date Admission Date: November 18, 2021 Subjective Patient seen in follow-up of spinal surgery Spiked fever yesterday 38.3C. current temp 37.7C Currently patient is sitting up in bed, in no acute distress Reports some pain in the surgical site However he says that numbness he had in the right lower extremity, is mostly all resolved He was working with PT earlier Denies any fevers, chills, chest pain, shortness of breath, abdominal pain Has been urinating, but no BM yet. He is passing gas. Review of Systems Review of Systems: All systems reviewed & are unremarkable except as noted in Subjective Physical Exam Physical Exam: General : Moderately built and nourished, no apparent distress Head: normocephalic, Atraumatic Eyes: normal inspection, EOMI Neck: supple, Trachea midline Respiratory/Chest: Normal breath sounds, CTA, No accessory muscle use Cardiovascular: S1, S2, No murmur Abdomen/GI:Soft, Non tender, Bowel sounds present Back: Surgical dressings applied Extremities/Musculoskeletal:normal inspection, no edema Neurologic/Psych:AAOX3, grossly no focal neurological deficits Skin: normal color, warm Results & Data Results & Data ([facility]) Vital Signs (Past 12 Hours) Vital Signs Temp Pulse Resp BP Pulse Ox 11/20/21 08:44 37.7 C H 90 16 120/70 96 Laboratory Results 11/20/21 11/20/21 11/20/21 Range/Units 08:15 07:17 07:17 WBC 12.58 H (4.8-10.8) K/uL RBC 3.55 L (4.7-6.1) M/uL Hgb 11.4 L (14.0-18.0) g/dL Hct 32.6 L (42-52) % MCV 91.8 (80-100) fL MCH 32.1 (25-34) pg MCHC 35.0 (32-36) g/dL RDW Std Deviation 42.9 (36.4-46.3) fL RDW Coeff of Anneliese 12.8 (11.5-14.5) % Plt Count 221 (130-400) K/uL MPV 9.4 (7.4-10.4) fL Sodium 133 L (136-145) mmol/L Potassium 4.2 (3.5-5.1) mmol/L Chloride 99 (98-107) mmol/L Carbon Dioxide 28 (21-32) mmol/L Anion Gap 6 (3-11) BUN 9 (6-23) mg/dl Creatinine 0.62 (0.6-1.4) mg/dl Est Cr Clr Drug Dosing 129.4 ml/min Est GFR ( Amer) 119.8 ml/min Est GFR (Non-Af Amer) 103.4 ml/min BUN/Creatinine Ratio 14.5 (10-20) Glucose 144 H (70-99(Fasting)) mg/dl POC Glucose 154 H (70-99) mg/dl Estimat Average Glucose mg/dl Hemoglobin A1c (4.5-5.6) % Calcium 8.7 (8.5-10.1) mg/dl 11/19/21 11/19/21 11/19/21 Range/Units 20:30 17:00 11:46 WBC (4.8-10.8) K/uL RBC (4.7-6.1) M/uL Hgb (14.0-18.0) g/dL Hct (42-52) % MCV (80-100) fL MCH (25-34) pg MCHC (32-36) g/dL RDW Std Deviation (36.4-46.3) fL RDW Coeff of Anneliese (11.5-14.5) % Plt Count (130-400) K/uL MPV (7.4-10.4) fL Sodium (136-145) mmol/L Potassium (3.5-5.1) mmol/L Chloride (98-107) mmol/L Carbon Dioxide (21-32) mmol/L Anion Gap (3-11) BUN (6-23) mg/dl Creatinine (0.6-1.4) mg/dl Est Cr Clr Drug Dosing ml/min Est GFR ( Amer) ml/min Est GFR (Non-Af Amer) ml/min BUN/Creatinine Ratio (10-20) Glucose (70-99(Fasting)) mg/dl POC Glucose 168 H 101 H 128 H (70-99) mg/dl Estimat Average Glucose mg/dl Hemoglobin A1c (4.5-5.6) % Calcium (8.5-10.1) mg/dl 11/19/21 Range/Units 08:32 WBC (4.8-10.8) K/uL RBC (4.7-6.1) M/uL Hgb (14.0-18.0) g/dL Hct (42-52) % MCV (80-100) fL MCH (25-34) pg MCHC (32-36) g/dL RDW Std Deviation (36.4-46.3) fL RDW Coeff of Anneliese (11.5-14.5) % Plt Count (130-400) K/uL MPV (7.4-10.4) fL Sodium (136-145) mmol/L Potassium (3.5-5.1) mmol/L Chloride (98-107) mmol/L Carbon Dioxide (21-32) mmol/L Anion Gap (3-11) BUN (6-23) mg/dl Creatinine (0.6-1.4) mg/dl Est Cr Clr Drug Dosing ml/min Est GFR ( Amer) ml/min Est GFR (Non-Af Amer) ml/min BUN/Creatinine Ratio (10-20) Glucose (70-99(Fasting)) mg/dl POC Glucose (70-99) mg/dl Estimat Average Glucose 114 mg/dl Hemoglobin A1c 5.6 (4.5-5.6) % Calcium (8.5-10.1) mg/dl Medications Administered Current Inpatient Medications Acetaminophen (Acetaminophen 500 Mg Tab) 1,000 mg PO Q8H PRN PRN Reason: MILD Pain Scale 1,2,3 & Pre PT Stop: 12/18/21 15:06 Last Admin: 11/19/21 16:05 Dose: 1,000 mg Documented by: Al Hydrox/Mg Hydrox/Simethicone (Aluminum/Magnesium Susp 30 Ml Udc) 30 ml PO Q6H PRN PRN Reason: Dyspepsia Stop: 12/18/21 15:06 Aspirin (Aspirin 81 Mg Ectab) 81 mg PO HS [facility] Stop: 12/18/21 20:59 Last Admin: 11/19/21 21:28 Dose: 81 mg Documented by: Atorvastatin Calcium (Atorvastatin 40 Mg Tab) 40 mg PO HS [facility] Stop: 12/18/21 20:59 Last Admin: 11/19/21 21:28 Dose: 40 mg Documented by: Bisacodyl (Bisacodyl 10 Mg Supp) 10 mg AK DAILY PRN PRN Reason: Constipation Stop: 12/18/21 15:06 Carbamazepine (Carbamazepine 100 Mg Tabcr) 100 mg PO BID NORI Stop: 12/18/21 20:59 Last Admin: 11/20/21 09:05 Dose: 100 mg Documented by: Carbamazepine (Carbamazepine 200 Mg Tabcr) 200 mg PO BID NORI Stop: 12/18/21 20:59 Last Admin: 11/20/21 09:05 Dose: 200 mg Documented by: Dextrose (Dextrose 50% 50 Ml Syringe) 25 - 50 ml IV UD PRN; Protocol PRN Reason: Hypoglycemia Protocol Stop: 12/18/21 16:14 Diphenhydramine HCl (Diphenhydramine Capsule 25 Mg Cap) 25 mg PO Q6H PRN PRN Reason: Allergic Rhinitis/Insomnia Stop: 12/18/21 15:06 Famotidine (Famotidine 20 Mg Tab) 20 mg PO Q12H PRN PRN Reason: Dyspepsia Stop: 12/18/21 15:06 Glucagon (Glucagon For Inj 1 Mg Vial) 1 mg IM UD PRN; Protocol PRN Reason: Hypoglycemia Protocol Stop: 12/18/21 16:14 Glucose (Glucose 40% Gel 15 Gm Tube) 15 - 30 gm PO UD PRN; Protocol PRN Reason: Hypoglycemia Protocol Stop: 12/18/21 16:14 Glucose (Glucose 10 Tabs/Tube) 4 - 8 tabs PO UD PRN; Protocol PRN Reason: Hypoglycemia Protocol Stop: 12/18/21 16:14 Hydromorphone HCl (Hydromorphone Inj 0.5 Mg/0.5 Ml Syr) 0.5 mg IV Q3H PRN PRN Reason: MODERATE Pain (Scale 4,5,6) & Pre PT Stop: 12/02/21 15:06 Hydromorphone HCl (Hydromorphone Inj 1 Mg/Ml Syringe) 1 mg IV Q3H PRN PRN Reason: SEVERE Pain (Scale 7,8,9,10) Stop: 12/02/21 15:06 Last Admin: 11/19/21 05:00 Dose: 1 mg Documented by: Hydroxyzine HCl (Hydroxyzine Hcl 25 Mg Tab) 25 mg PO Q8H PRN PRN Reason: Anxiety Stop: 12/18/21 15:06 Promethazine HCl 12.5 mg/ (Sodium Chloride) 50.5 mls @ 202 mls/hr IV Q6H PRN PRN Reason: Nausea &/or Vomiting Stop: 12/18/21 15:06 Acetaminophen (Ofirmev) 1,000 mg in 100 mls @ 400 mls/hr IV Q8H PRN PRN Reason: Pain Rating 1-3 & Pre PT Stop: 11/21/21 15:06 Dexamethasone 6 mg/ Syringe 1.5 mls @ 1 mls/min IV DAILY NORI Stop: 11/21/21 09:02 Last Admin: 11/20/21 09:06 Dose: 1 mls/min Documented by: Influenza Virus Vaccine Quadrival (Do Not Administer Flu Vaccine) 1 ea N/A PRN PRN PRN Reason: Notification Stop: 12/18/21 15:06 Insulin Aspart (Insulin Aspart Per Unit) 0 units SC ACHS NORI Stop: 12/18/21 16:29 Last Admin: 11/20/21 09:03 Dose: 6 units Documented by: Lorazepam (Lorazepam 0.5 Mg Tab) 0.5 mg PO Q8H PRN PRN Reason: Sedation/Anxiety Stop: 12/18/21 15:06 Lorazepam (Lorazepam 2 Mg/1 Ml Vial) 0.5 mg IV Q8H PRN PRN Reason: Sedation/Anxiety Stop: 12/18/21 15:06 Magnesium Hydroxide (Magnesium Hydroxide Susp 30 Ml Udc) 30 ml PO Q24H PRN PRN Reason: Constipation Stop: 12/18/21 15:06 Metoclopramide HCl (Metoclopramide Hcl Inj 5 Mg/Ml 2 Ml Vial) 10 mg IV Q6H PRN PRN Reason: Nausea &/or Vomiting Stop: 12/18/21 15:06 Miscellaneous (Carbohydrates For Hypoglycemia ) 15 - 30 gm PO UD PRN PRN Reason: Hypoglycemia Treatment Stop: 12/18/21 16:14 Miscellaneous Information (Pharmacy Glycemic Mgmt Consult) 1 ea N/A UD PRN PRN Reason: Consult Stop: 12/18/21 15:06 Multivitamins (Multivitamin Tab) 1 tab PO QAM [facility] Stop: 12/19/21 08:59 Last Admin: 11/20/21 09:06 Dose: 1 tab Documented by: Naloxone HCl (Naloxone Hcl 0.4 Mg/1 Ml Vial/Carp) 0.1 mg IV Q5M PRN PRN Reason: Oversedation/Resp depression Stop: 12/18/21 15:06 Carbamazepine 400 Mg Xr - Non-Formulary Patient's Own Med 1 ea PO BID@1130,2100 [facility] Stop: 12/18/21 16:29 Last Admin: 11/19/21 21:28 Dose: 1 tab Documented by: Phenobarbital - Non- Formulary Patient's Own Med 1 ea PO BID [facility] Stop: 12/18/21 20:59 Last Admin: 11/20/21 09:10 Dose: 64.8 mg Documented by: Ondansetron HCl (Ondansetron Inj 2 Mg/Ml 2 Ml Vial) 4 mg IV Q6H PRN PRN Reason: Nausea &/or Vomiting Stop: 12/18/21 15:06 Ondansetron HCl (Ondansetron 4 Mg Od Tab) 4 mg PO Q6H PRN PRN Reason: Nausea Stop: 12/18/21 15:06 Oxycodone HCl (Oxycodone Hcl Ir 5 Mg Tab (Immediate Release)) 5 - 10 mg PO Q4H PRN PRN Reason: Pain & Pre PT Stop: 12/02/21 15:06 Last Admin: 11/19/21 21:38 Dose: 5 mg Documented by: Phenytoin Sodium (Phenytoin Sodium Er 100 Mg Cap) 100 mg PO BID@0900,1130 [facility] Stop: 12/18/21 15:06 Last Admin: 11/20/21 09:05 Dose: 100 mg Documented by: Phenytoin Sodium (Phenytoin Sodium Er 100 Mg Cap) 200 mg PO [facility] Stop: 12/18/21 20:59 Last Admin: 11/19/21 21:31 Dose: 200 mg Documented by: Pneumococcal Polyvalent Vaccine (Do Not Administer Pneumococcal Vaccine) 1 ea N/A PRN PRN PRN Reason: Notification Stop: 12/18/21 15:06 Polyethylene Glycol (Polyethylene (Miralax) 17 Gm Pack) 17 gm PO Q6 [facility] Stop: 12/19/21 05:59 Last Admin: 11/20/21 05:45 Dose: 17 gm Documented by: Senna/Docusate Sodium (Docusate Sodium/Senna 50/8.6mg Tab) 2 tab PO [facility] Stop: 12/18/21 20:59 Last Admin: 11/19/21 21:28 Dose: 2 tab Documented by: Sodium Biphosphate/Sodium Phosphate (Sod Phosphate/Sod Biphosphate Enema 132 Ml Btl) 132 ml AK ONE PRN PRN Reason: Constipation Stop: 12/18/21 15:06 Tamsulosin HCl (Tamsulosin Hcl 0.4 Mg Cap) 0.4 mg PO [facility] Stop: 12/18/21 20:59 Last Admin: 11/19/21 21:32 Dose: 0.4 mg Documented by: Tramadol HCl (Tramadol Hcl 50 Mg Tablet) 50 - 100 mg PO Q4H PRN PRN Reason: Moderate-Severe pain & Pre PT Stop: 12/18/21 15:06 Last Admin: 11/20/21 09:04 Dose: 100 mg Documented by:
[2021-11-20] MEDS: ACETAMINOPHEN 500 MG TAB PO PRN (10:41)
--- NOTE | 2021-11-20 10:46 | XRay Report ---
XR chest 1V portable CLINICAL HISTORY: fever. COMPARISON STUDY: No previous studies for comparison. TECHNIQUE: 1 view of the chest FINDINGS: Single frontal view of the chest demonstrates the cardiomediastinal silhouette to be within normal li mits. There is a decreased inspiratory effort with elevation of the hemidiaphragms and crowding of th e bronchovascular markings at the lung bases and centrally. The lungs are clear of alveolar opacities . There is no evidence for pleural effusion. There is no evidence for vascular congestion. There is n o acute osseous pathology. IMPRESSION: 1. There is a decreased inspiratory effort with otherwise no acute chest disease. ACT 112: Negative or not required by law. Electronically signed by: Palmer Santana M.D. 11/20/2021 10:45 AM
--- NOTE | 2021-11-20 11:23 | Discharge Summary ---
Date of Service November 20, 2021 Admission HPI Per Admitting Provider This is a 66-year-old male presents with marked decline in status with pain and weakness. After failing 6 course of nonoperative care is here for surgical intervention. Principal Diagnosis Lumbar spinal stenosis with neurogenic claudication Discharge Data Allergies Allergy/AdvReac Type Severity Reaction Status Date / Time No Known Allergies Allergy Verified 11/18/21 08:18 Consultations 11/18/21 15:07 Consult Hospitalist Routine Procedures Performed Operation Date: 11/18/21 09:45 Actual Procedures p L3-L5 Decompression and Fusion with ifactor bone graft and Vitoss bone graft, Spinal Cord Monitoring, interbody fusion L3-L5(Not Applicable) - Emre Kaba DO Ordered Studies 11/18/21 [place] lumbar spine 2-3V Routine Hospital Course (1) Neurogenic claudication due to lumbar spinal stenosis: Patient underwent multilevel lumbar decompression fusion tolerated this well was taken to orthopedic for postoperative. Postop day 1 he was up and ambulating progressed to postop day #2 back pain controlled. LAUREN drain decreasing appropriately. Strength improving. Subsequent discharge home. Discharge orders instructions from the chart for further review. Total Time Total Time Spent Total Time Spent (In Minutes): 20 minutes Discharge Plan Discharge Items Patient Disposition: Home - Self-Care Reason For Visit: Spinal Stenosis, Lumbar Region Neuogenic Claudicat Discharge Diagnosis: Lumbar spinal stenosis with neurogenic claudication Activity: As commented below Non-emergency contact: Primary Care Provider Call non-emergency contact if: you have any medication questions Follow-up/Referrals: Jenny Snyder DO [Primary Care Provider] - Diet: Regular Addtl Attending Provider Instructions: ACTIVITY RECOMMENDATIONS: SELF CARE INSTRUCTIONS AFTER THORACIC/LUMBAR FUSIONS 1. You may walk to your tolerance. It is good exercise for your legs and back. Expect some back and intermittent leg aches and pains. 2. You may perform "counter-top" level activities (make a sandwich, [place] with a project, etc.). 3. No bending or lifting of more than 10 pounds or back twisting of any nature (roll like a log when turning in bed). 4. You may ride in a car for 20-30 minutes at a time. No driving until after your first visit with your doctor. 5. Frequent changes of position and restricting sitting to 30 minutes at a time will help limit the amount of back spasms and stiffness you may experience. 6. You may discontinue the use of ambulatory aids (cane, crutches, etc.) once your strength and confidence allow. 7. You may maintenance shop manager the shower and let water strike your incision when you arrive home at least once daily. Do not take a tub bath, sit in a hot tub or go into a swimming pool until after your first recheck in the office. SPECIAL CARE INSTRUCTIONS: VERY IMPORTANT TO READ AND REVIEW A. Your surgical incision has been closed with a cosmetic suture under the skin that will dissolve in about 6 weeks. In 14 days, you can use a pair of clean scissors and cut the suture that is left outside of the skin at the ends of your incision. 1. The small skin tapes can be removed 7 days after surgery if they have not fallen off by that point. 2. You may keep the wound open to air as much as possible to promote healing after post-op day number 5 unless told otherwise by your doctor. 3. If you think the wound looks like it is becoming infected (redness or worsening drainage) and/or you are experiencing fever, chill or worsening back pain and muscle spasms, contact the office so that we may evaluate you as soon as possible. B. Complications are uncommon, but please contact us if you have any signs or symptoms of: 1. wound infection (fever higher than 102.5 degrees F, redness, separation of wound, drainage, or increasing pain from the incision) 2. blood clots in legs (pain, swelling, redness and warmth in legs) 3. urinary tract infection (fever higher than 102.5 degrees F, burning upon urination or increased frequency of urination) 4. nerve problems (inability to walk on your toes or heels, numbness, loss of bowel or bladder control) 5. any other symptoms that concern you C. Please call the office at if you have any concerns or questions about your operation or recovery. D. No smoking! Smoking drastically decreases the chance of a solid fusion. E. Do not take any anti-inflammatory medications (Indocin, Advil, Motrin, Aspirin, Naprosyn, etc.) as these may inhibit the chance of a solid fusion. Tylenol is okay to take for pain. MANAGING PAIN AFTER SPINAL SURGERY 1. Narcotic medication is intended for short-term use and will be provided for surgical pain. Surgical pain usually lasts for a period of 4-6 weeks. Narcotic medication includes Percocet, Vicodin, Darvocet, Tylenol #3 or Lortab. 2. Longer-term pain is more appropriately treated with non-narcotic medication such as Tylenol ES. 3. Muscle spasm is not appropriately treated with narcotics. Muscle relaxers such as Soma, Flexeril or Skelaxin can be used along with Tylenol ES. 4. Remember that we all live with some "aches and pains". This is not unusual or uncommon after an injury or as we get older. a. Back pain is expected and may include muscle spasms for 4 to 6 weeks after surgery. The pain should gradually improve. If the pain worsens for no apparent reason, please contact the office. b. Intermittent leg pain may also be experienced and should not be concerned about unless it worsens for no apparent reason. If so, please contact the office. 5. We will provide appropriate medication within the normal guidelines of their prescribed use. We will also be very cautious and aware of potential abuse and extended duration of patients' medication needs. a. Pain medications are for your comfort and to assist with sleep and rest so that the tissue can heal. They are not provided in order to return to normal activity and should not be used through the day. To do so or worsening pain at night can result from ongoing tissue damage and development of tolerance to the prescribed medicine. 6. Please allow 2-3 days to process refills. Prescriptions will not be mailed but must be picked up at the office. FOLLOW UP VISIT: Keep your scheduled follow-up appointment. Any questions, please call the office at . Pending Studies at Discharge: No Stand-Alone Forms: [facility], Smoking Cessation Medications and DC Order Prescriptions: New tramadol 50 mg tablet 50 mg PO Q6H PRN (Reason: pain, moderate) Qty: 30 RF: 0 oxycodone 5 mg tablet 5 mg PO Q6H PRN (Reason: pain, severe) Qty: 30 RF: 0 Continued multivitamin Tablet 1 tab PO QAM RF: 0 atorvastatin 40 mg Tablet 40 mg PO HS RF: 0 metformin 500 mg Tablet 1,000 mg PO UD RF: 0 carbamazepine [Tegretol XR] 100 mg Tablet Extended Release 12 Hr 100 mg PO UD RF: 0 phenytoin sodium extended [Dilantin Extended] 100 mg Capsule 100 mg PO UD RF: 0 carbamazepine [Tegretol XR] 400 mg Tablet Extended Release 12 Hr 400 mg PO UD RF: 0 tamsulosin 0.4 mg Capsule 0.4 mg PO HS RF: 0 carbamazepine [Tegretol XR] 200 mg Tablet Extended Release 12 Hr 200 mg PO UD RF: 0 phenobarbital 64.8 mg Tablet 64.8 mg PO BID RF: 0 Jardiance 10 mg Tablet 10 mg PO QAM RF: 0 Ozempic 0.25 mg or 0.5 mg(2 mg/1.5 mL) Pen Injector 0.25 mg SUBCUT WK RF: 0 aspirin 81 mg Capsule 81 mg PO HS RF: 0 Discharge Orders: Discharge Order (Routine); Ordered 11/20/21 Ordered By: Emre Kaba Admission Data Admit Date/Time: 11/18/21 11:54 Attending Provider: Emre Kaba Admit Provider: Emre Kaba Primary Care Provider: Jenny Snyder Other Providers: Umesh Kingston
[2021-11-20] MEDS: CARBAMAZEPINE 400 MG PO SCH (12:38)
== END 2021-11-20 14:23 | disposition home or self-care (01) | DRG 454 ==
LOC: ASU 07:52 → 3E 11:54